=== PATIENT | male | born 2000 | race African-American/Black ===

== ENCOUNTER 2019-04-29 09:48 | Outpatient (CLI) | payer OTHER | END 2019-04-29 10:14 | disposition home or self-care (01) | LOC: LAB 09:48 | DX: R42 Dizziness and giddiness (principal); Z00.00 Encounter for general adult medical examination without abnormal findings; E78.49 Other hyperlipidemia; E55.9 Vitamin D deficiency, unspecified ==

== ENCOUNTER 2019-09-08 08:37 | Outpatient (CLI) | payer OTHER | END 2019-09-08 15:00 | disposition home or self-care (01) | LOC: LAB 08:37 | PROVIDERS: ATTEND General Practice | DX: R60.0 Localized edema (principal); I87.2 Venous insufficiency (chronic) (peripheral) ==

== ENCOUNTER 2019-09-15 10:10 | Outpatient (CLI) | payer OTHER | END 2019-09-15 10:33 | disposition home or self-care (01) | LOC: NUCLEAR 10:10 | PROVIDERS: ATTEND General Practice | DX: R60.0 Localized edema (principal); I87.2 Venous insufficiency (chronic) (peripheral) ==

== ENCOUNTER 2019-09-20 10:20 | Outpatient (CLI) | payer OTHER | END 2019-09-20 11:35 | disposition home or self-care (01) | LOC: NUCLEAR 10:20 | PROVIDERS: ATTEND General Practice | DX: I73.9 Peripheral vascular disease, unspecified (principal); I87.2 Venous insufficiency (chronic) (peripheral); R60.0 Localized edema ==